=== PATIENT | female | born 1965 | race Two or more races ===

== ENCOUNTER → 2024-12-15 | Outpatient (CLI) | payer BC, SELFPAY ==
--- NOTE | 2024-12-15 13:00 | XR_ITS ---
Examination: Thyroid sonography complete TECHNIQUE: Multiple grayscale sonographic images thyroid lobes with color flow analysis Exam date and time: April 19, [id number] hours INDICATIONS: Thyroid sonogram April 23, 2024 left thyroid upper pole vascular nodule 12 x 15 x 20 FINDINGS: Right thyroid 5.4 x 1.6 x 1.9 cm No thyroid nodule Left thyroid 5.2 x 1.3 x 2.1 cm Vascular mass upper pole 2.1 x 1.1 x 1.5 cm IMPRESSION: Consider ultrasound-guided fine-needle aspiration of the vascular solid nodule upper pole left thyroid
== END | disposition home or self-care (01) ==
LOC: CDIM 12:31
PROVIDERS: PCP Nurse Practitioner Family; Referring Provider Nurse Practitioner Family; Visit Provider Nurse Practitioner Family
DX: E04.1 Nontoxic single thyroid nodule (principal)
CPT/HCPCS: 76536

== ENCOUNTER → 2025-01-12 | Outpatient (CLI) | payer BC, SELFPAY ==
[2025-01-12 08:32] LABS: Basophils # (Auto) 0.1 Thou/mm3 (0.0-0.2); Basophils % (Auto) 1 % (0-2.5); Eosinophils # (Auto) 0.1 Thou/mm3 (0.0-0.5); Eosinophils % (Auto) 2 % (0-10); Hematocrit 41.4 % (36.0-46.0); Hemoglobin 13.6 g/dL (12.0-16.0); Immature Granulocytes % (Auto) 0 % (0-0); Immature Granulocytes Auto 0.03 Thou/mm3 (0.00-0.00); Lymphocytes % (Auto) 45 % (10-50); Mean Corpuscular HGB Conc 32.9 g/dl (31.0-37.0); Mean Corpuscular Hemoglobin 30.4 pg (25.0-35.0); Mean Corpuscular Volume 93 fL (80-100); Monocytes # (Auto) 0.6 Thou/mm3 (0.0-0.8); Monocytes % (Auto) 9 % (0-12); Neutrophils # (Auto) 2.9 Thou/mm3 (1.8-7.7); Neutrophils % (Auto) 44 % (37-80); Nucleated Red Blood Cell % 0 /100 WBC (0); Platelet Count 193 Thou/mm3 (140-440); RDW Standard Deviation 43.5 fL (36.4-46.3); Red Blood Count 4.47 Miln/mm3 (4.00-5.20); White Blood Count 6.7 Thou/mm3 (3.6-11.0)
[2025-01-12 08:53] LABS: Alanine Aminotransferase 18 U/L (10-49); Albumin, Serum 3.9 gm/dL (3.5-5.0); Albumin/Globulin Ratio 1.8 (1.2-2.2); Alkaline Phosphatase 94 U/L (46-116); Anion Gap 7 (7-16); Aspartate Amino Transferase 18 U/L (0-34); BUN/Creatinine Ratio 16 Ratio (12-20); Bilirubin,Total 0.5 mg/dL (0.3-1.2); Blood Urea Nitrogen 13 mg/dL (9-23); Calcium 9.5 mg/dL (8.3-10.6); Calcium (Corrected) 9.6 mg/dL (8.5-10.1); Carbon Dioxide 32.5 mMol/L (20.0-31.0); Cardiac Risk Estimate 5.6 RATIO (3.7-5.6); Chloride 103 mMol/L (98-107); Cholesterol 284 mg/dL (132-200); Creatinine (Component) 0.8 mg/dL (0.6-1.3); Folate 11.39 ng/mL (>5.38); Free T4 (Free Thyroxine) 1.05 ng/dL (0.89-1.76); Globulin 2.2 gm/dL (2.3-3.5); Glucose 123 mg/dL (74-106); HDL Cholesterol 51 mg/dL (40-60); LDL Cholesterol,Calculated 197 mg/dL (0-130); Osmolality,Calculated 284 (275-295); Potassium 4.8 mMol/L (3.4-5.1); Sodium 142 mMol/L (136-145); Thyroid Stimulating Hormone 0.71 uIU/mL (0.55-4.78); Total Protein 6.1 gm/dL (5.7-8.2); Triglycerides 180 mg/dL (30-150); Vitamin B12 750 pg/mL (211-911); Vitamin D 25 Hydroxy Total 31.4 ng/mL (7.3-40.2); eGFR > 60 See Note
[2025-01-12 09:51] LABS: Glucose Estimated Average 123 mg/dL (80-131); Hemoglobin A1C 5.9 % Hgb (4.8-6.0)
== END | disposition home or self-care (01) ==
LOC: COPL 07:44
PROVIDERS: PCP Family Medicine; Referring Provider Nurse Practitioner Family; Visit Provider Nurse Practitioner Family
DX: E78.5 Hyperlipidemia, unspecified (principal); R53.81 Other malaise; R53.83 Other fatigue; Z13.1 Encounter for screening for diabetes mellitus; Z13.29 Encounter for screening for other suspected endocrine disorder
CPT/HCPCS: 36415; 80053; 80061; 82306; 82607; 82746; 83036; 84439; 84443; 85025

== ENCOUNTER → 2025-06-05 | Outpatient (CLI) | payer BC, SELFPAY ==
[2025-06-05 08:35] LABS: Basophils # (Auto) 0.1 Thou/mm3 (0.0-0.2); Basophils % (Auto) 1 % (0-2.5); Eosinophils # (Auto) 0.1 Thou/mm3 (0.0-0.5); Eosinophils % (Auto) 2 % (0-10); Hematocrit 40.2 % (36.0-46.0); Hemoglobin 13.2 g/dL (12.0-16.0); Immature Granulocytes Auto 0.05 Thou/mm3 (0.00-0.00); Lymphocytes # (Auto) 2.7 Thou/mm3 (1.0-4.8); Lymphocytes % (Auto) 38 % (10-50); Mean Corpuscular HGB Conc 32.8 g/dl (31.0-37.0); Mean Corpuscular Hemoglobin 29.7 pg (25.0-35.0); Mean Corpuscular Volume 90 fL (80-100); Monocytes # (Auto) 0.6 Thou/mm3 (0.0-0.8); Monocytes % (Auto) 8 % (0-12); Neutrophils # (Auto) 3.5 Thou/mm3 (1.8-7.7); Neutrophils % (Auto) 51 % (37-80); Nucleated Red Blood Cell # 0.00 Thou/mm3 (0.00-0.00); Nucleated Red Blood Cell % 0 /100 WBC (0); Platelet Count 250 Thou/mm3 (140-440); RDW Standard Deviation 42.9 fL (36.4-46.3); Red Blood Count 4.45 Miln/mm3 (4.00-5.20); White Blood Count 7.0 Thou/mm3 (3.6-11.0)
[2025-06-05 08:43] LABS: Glucose Estimated Average 120 mg/dL (80-131); Hemoglobin A1C 5.8 % Hgb (4.8-6.0)
[2025-06-05 08:55] LABS: Alanine Aminotransferase 13 U/L (10-49); Albumin, Serum 4.0 gm/dL (3.4-4.8); Anion Gap 6 (7-16); Aspartate Amino Transferase 17 U/L (0-34); BUN/Creatinine Ratio 13 Ratio (12-20); Bilirubin,Total 0.5 mg/dL (0.3-1.2); Blood Urea Nitrogen 12 mg/dL (9-23); Calcium 9.3 mg/dL (8.3-10.6); Carbon Dioxide 29.9 mMol/L (20.0-31.0); Chloride 105 mMol/L (98-107); Creatinine (Component) 0.9 mg/dL (0.6-1.3); Glucose 121 mg/dL (74-106); Osmolality,Calculated 281 (275-295); Potassium 4.8 mMol/L (3.4-5.1); Sodium 141 mMol/L (136-145); Total Protein 6.7 gm/dL (5.7-8.2); eGFR > 60 See Note
[2025-06-05 08:56] LABS: Albumin/Globulin Ratio 1.5 (1.2-2.2); Alkaline Phosphatase 99 U/L (46-116); Calcium (Corrected) 9.3 mg/dL (8.5-10.1); Cardiac Risk Estimate 6.7 RATIO (3.7-5.6); Cholesterol 302 mg/dL (132-200); Free T3 2.6 pg/mL (2.3-4.2); Free T4 (Free Thyroxine) 0.99 ng/dL (0.89-1.76); Globulin 2.7 gm/dL (2.3-3.5); HDL Cholesterol 45 mg/dL (40-60); LDL Cholesterol,Calculated 229 mg/dL (0-130); Thyroid Stimulating Hormone 1.72 uIU/mL (0.55-4.78); Triglycerides 140 mg/dL (30-150)
== END | disposition home or self-care (01) ==
LOC: COPL 07:30
PROVIDERS: PCP Nurse Practitioner Family; Referring Provider Nurse Practitioner Family; Visit Provider Nurse Practitioner Family
DX: E04.1 Nontoxic single thyroid nodule (principal); E78.5 Hyperlipidemia, unspecified; R73.03 Prediabetes; Z13.6 Encounter for screening for cardiovascular disorders
CPT/HCPCS: 36415; 80053; 80061; 83036; 84439; 84443; 84481; 85025